=== PATIENT | male | born 1950 | race Caucasian/White ===

== ENCOUNTER 2019-11-27 16:14 | Emergency (ER) | payer MEDICARE, OTHER ==
[2019-11-27] MEDS ORDERED: NS 0.9% 1000 ML** 1,000 ML IV ONE ×2 (16:57→18:14)
[2019-11-27 17:18] LABS: ABS Basophils 0.1 10^3/ul (0-0.2); ABS Eosinophils 0.3 10^3/ul (0-0.6); ABS Lymphocytes 2.9 10^3/ul (1.0-4.8); ABS Monocytes 1.1 10^3/ul (0-0.8); ABS Neutrophils 7.3 10^3/ul (1.5-7.7); Eosinophil % 2.9 %; Hematocrit 48 % (42-52); Hemoglobin 15.7 g/dL (14.0-18.0); Lymphocyte % 24.6 %; Mean Corpuscular HGB Conc 33 g/dL (31-36); Mean Corpuscular Hemoglobin 28 pg (27-31); Mean Corpuscular Volume 84 fL (80-94); Mean Platelet Volume 9.5 fL (7.4-10.4); Nucleated Red Blood Cells % 0.1; Platelet Count 229 10^3/uL (150-450); Red Blood Count 5.69 10^6 /uL (4.18-5.48); Red Cell Distribution Width 15 % (10-15); White Blood Count 11.7 10^3/uL (3.5-10.8)
[2019-11-27] MEDS ORDERED: Ondansetron INJ* 2 MG/ML VIAL IV ONE (17:22)
[2019-11-27] MEDS ORDERED: Morphine 4 MG/ML VIAL (1 ml) 4 MG/ML VIAL IV ONE (17:22)
[2019-11-27] MEDS ORDERED: Tamsulosin CAP* 0.4 MG PO ONE (17:23)
[2019-11-27 17:39] LABS: Albumin 4.4 g/dL (3.2-5.2); BUN/Creatinine Ratio 17.7 (8-20); Calcium 9.7 mg/dL (8.6-10.3); EGFR African American 70.4 (>60); EGFR Non-African American 58.1 (>60); Globulin 4.3 g/dL (2-4); Potassium 3.6 mmol/L (3.5-5.0); Total Protein 8.7 g/dL (6.4-8.9)
--- NOTE | 2019-11-27 17:49 | ED ---
GI/ HPI - HPI Summary HPI Summary: Patient is a 69 y/o M w/ Hx of kidney stones who presents to [facility] with complaints of right flank pain with radiation to right groin area. He states that the pain onset yesterday morning. He reports N/V but denies dysuria, hematuria, fever, CP, and SOB. Patient describes this current presentation as similar to his previous kidney stone episodes. He notes that the last kidney stone he had was in 2011. Patient passed the stone on its own, he notes that he has not required stent placement or lithotripsy for kidney stones. Hx of type two diabetes noted. No past abdominal surgeries noted. Home medications and allergies are reviewed. - History of Current Complaint Chief Complaint: EDFlankPain Time Seen by Provider: 11/27/19 16:54 Stated Complaint: PAIN IN LOWER BACK/VOMITING PER PT Hx Obtained From: Patient Onset/Duration: Started Days Ago, Still Present Timing: Lasting Days Current Severity: Moderate Pain Intensity: 5 Location of Pain: Radiates to: - right groin, Flank - right Pain Radiates to: Inguinal - right groin Associated Signs and Symptoms: Positive: Nausea, Vomiting, Other: - negative - SOB. Negative: Fever, Hematuria, Dysuria, Chest Pain - Allergy/Home Medications Allergies/Adverse Reactions: Allergies Allergy/AdvReac Type Severity Reaction Status Date / Time MS Sulfa Antibiotics Allergy Unknown Unknown Verified 11/27/19 16:21 [Sulfa Antibiotics] Reaction Details PMH/Surg Hx/FS Hx/Imm Hx Endocrine/Hematology History: Reports: Hx Diabetes - Type 2 History: Reports: Hx Kidney Stones - Surgical History Surgery Procedure, Year, and Place: cardiac stent Infectious Disease History: No Infectious Disease History: Denies: Traveled Outside the [place] in Last 30 Days - Family History Known Family History: Negative: Cardiac Disease, Hypertension, Diabetes - Social History Alcohol Use: None Substance Use Type: Reports: None Smoking Status (MU): Former Smoker Type: Cigarettes Have You Smoked in the Last Year: No Review of Systems Negative: Fever Negative: Chest Pain Negative: Shortness Of Breath Positive: Vomiting, Nausea Positive: flank pain - right flank with radiation to right groin . Negative: dysuria, hematuria All Other Systems Reviewed And Are Negative: Yes Physical Exam - Summary Physical Exam Summary: Constitutional: Well-developed, Well-nourished, Alert. (-) Distressed Skin: Warm, Dry HENT: Normocephalic; Atraumatic Eyes: Conjunctiva normal Neck: Musculoskeletal ROM normal neck. (-) JVD, (-) Stridor, (-) Tracheal deviation Cardio: Rhythm regular, rate normal, Heart sounds normal; Intact distal pulses; The pedal pulses are 2+ and symmetric. Radial pulses are 2+ and symmetric. (-) Murmur Pulmonary/Chest wall: Effort normal. (-) Respiratory distress, (-) Wheezes, (-) Rales Abd: Soft, right flank tenderness and mild right-sided abdominal tenderness noted (-) Distension, (-) Guarding, (-) Rebound Musculoskeletal: (-) Edema Lymph: (-) Cervical adenopathy Neuro: Alert, Oriented x3 Psych: Mood and affect Normal Triage Information Reviewed: Yes Vital Signs On Initial Exam: Initial Vitals Temp Pulse Resp BP Pulse Ox 97.8 F 66 18 179/89 97 11/27/19 16:16 11/27/19 16:16 11/27/19 16:16 11/27/19 16:16 11/27/19 16:16 Vital Signs Reviewed: Yes Procedures - Sedation Patient Received Moderate/Deep Sedation with Procedure: No Diagnostics - Vital Signs Vital Signs Temp Pulse Resp BP Pulse Ox 11/27/19 16:16 97.8 F 66 18 179/89 97 - Laboratory Lab Results: Lab Results 11/27/19 11/27/19 Range/Units 17:12 17:12 WBC 11.7 H (3.5-10.8) 10^3/uL RBC 5.69 H (4.18-5.48) 10^6 /uL Hgb 15.7 (14.0-18.0) g/dL Hct 48 (42-52) % MCV 84 (80-94) fL MCH 28 (27-31) pg MCHC 33 (31-36) g/dL RDW 15 (10-15) % Plt Count 229 (150-450) 10^3/uL MPV 9.5 (7.4-10.4) fL Neut % (Auto) 62.2 % Lymph % (Auto) 24.6 % [place] % (Auto) 9.7 % Eos % (Auto) 2.9 % Baso % (Auto) 0.6 % Absolute Neuts (auto) 7.3 (1.5-7.7) 10^3/ul Absolute Lymphs (auto) 2.9 (1.0-4.8) 10^3/ul Absolute Monos (auto) 1.1 H (0-0.8) 10^3/ul Absolute Eos (auto) 0.3 (0-0.6) 10^3/ul Absolute Basos (auto) 0.1 (0-0.2) 10^3/ul Absolute Nucleated RBC 0.0 10^3/ul Nucleated RBC % 0.1 Sodium 137 (135-145) mmol/L Potassium 3.6 (3.5-5.0) mmol/L Chloride 100 L (101-111) mmol/L Carbon Dioxide 26 (22-32) mmol/L Anion Gap 11 (2-11) mmol/L BUN 22 (6-24) mg/dL Creatinine 1.24 H (0.67-1.17) mg/dL Est GFR ( Amer) 70.4 (>60) Est GFR (Non-Af Amer) 58.1 (>60) BUN/Creatinine Ratio 17.7 (8-20) Glucose 207 H (70-100) mg/dL Calcium 9.7 (8.6-10.3) mg/dL Total Bilirubin 1.00 (0.2-1.0) mg/dL AST 79 H (13-39) U/L ALT 68 H (7-52) U/L Alkaline Phosphatase 259 H (34-104) U/L Total Protein 8.7 (6.4-8.9) g/dL Albumin 4.4 (3.2-5.2) g/dL Globulin 4.3 H (2-4) g/dL Albumin/Globulin Ratio 1.0 (1-3) Result Diagrams: 11/27/19 17:12 11/27/19 17:12 Lab Statement: Any lab studies that have been ordered have been reviewed, and results considered in the medical decision making process. - CT CT ABD/PEL CT Interpretation Completed By: Radiologist Summary of CT Findings: IMPRESSION: 1. THERE IS A 7 MM CALCULUS PRESENT IN THE PROXIMAL RIGHT URETER CAUSING MODERATE. HYDRONEPHROSIS. 2. THE LIVER IS HETEROGENEOUS IN DENSITY WITH A MILDLY NODULAR CONTOUR SUGGESTIVE OF. CIRRHOSIS. 3. SMALL BILATERAL INGUINAL HERNIAS CONTAINING FAT. 4. LARGE PROSTATE GLAND. THIS REPORT WAS REVIEWED BY ED PHYSICIAN. GIGU Course/Dx - Course Course Of Treatment: Patient is a 69 y/o M w/ Hx of kidney stones who presents to [facility] with complaints of right flank pain with radiation to right groin area. He states that the pain onset yesterday morning. He reports N/V but denies dysuria, hematuria, fever, CP, and SOB. Patient describes this current presentation as similar to his previous kidney stone episodes. He notes that the last kidney stone he had was in 2011. Patient passed the stone on its own, he notes that he has not required stent placement or lithotripsy for kidney stones. Hx of type two diabetes noted. No past abdominal surgeries noted. Bloodwork was obtained. On physical exam, right flank tenderness and mild right- sided abdominal tenderness noted. Abnormal values include WBC 11.7, RBC 5.69, absolute monos 1.1, chloride 100, creatinine 1.24, glucose 207, AST 79, ALT 68, alk phos 259, globulin 4.3. During ED course, patient received Flomax 0.4 mg PO , fluids, Zofran 4 mg IV, morphine [address] ABD/PEL IMPRESSION: 1. THERE IS A 7 MM CALCULUS PRESENT IN THE PROXIMAL RIGHT URETER CAUSING MODERATE. HYDRONEPHROSIS. 2. THE LIVER IS HETEROGENEOUS IN DENSITY WITH A MILDLY NODULAR CONTOUR SUGGESTIVE OF. CIRRHOSIS. 3. SMALL BILATERAL INGUINAL HERNIAS CONTAINING FAT. 4. LARGE PROSTATE GLAND. UA showed 1+ protein, 3+ blood, 1+ WBC, 3+ RBC. Patient's case was discussed with Dr. Oviedo, Dr. Oviedo agrees that it is reasonable to discharge the patient as he is afebrile without signs of UTI. Patient can follow up in Dr. Oviedo's office on Saturday, . If Sx worsen, patient will need to return to ED for workup. Patient was discharged to home with prescriptions for Zofran, Flomax, and hydrocodone. - Diagnoses Provider Diagnoses: Right ureteral stone, Elevated LFTs - Physician Notifications Discussed Care Of Patient With: Jonathan Oviedo Time Discussed With Above Provider: 18:29 Instructed by Provider To: Other - Patient's case was discussed with Dr. Oviedo, Dr. Oviedo agrees that it is reasonable to discharge the patient as he is afebrile without signs of UTI. Patient can follow up in Dr. Oviedo's office on 11/30/19. If Sx worsen, patient will need to return to ED for workup. Discharge ED - Sign-Out/Discharge Documenting (check all that apply): Patient Departure - discharge - Discharge Plan Condition: Stable Disposition: HOME Patient Education Materials: Ureteral Stones (ED) Referrals: Sallie Wilks MD [Primary Care Provider] - 3 Days Jonathan Oviedo MD [Medical Doctor] - 3 Days Additional Instructions: PLEASE RETURN TO ED FOR ANY NEW OR CONCERNING SYMPTOMS. PLEASE FOLLOW UP WITH YOUR PRIMARY CARE PHYSICIAN AND YOUR UROLOGIST WITHIN THREE DAYS. - Attestation Statements Document Initiated by Scribe: Yes Documenting Scribe: DANA VAZ Provider For Whom Scribe is Documenting (Include Credential): PIA SALAZAR DO Scribe Attestation: DANA Ibarra, scribed for PIA SALAZAR DO on 11/27/19 at 1841.
[2019-11-27 18:26] LABS: Urine Appearance Cloudy; Urine Bilirubin Negative (Negative); Urine Blood 3+ (Negative); Urine Color Amber; Urine Glucose Negative (Negative); Urine Ketones Negative (Negative); Urine Nitrite Negative (Negative); Urine Protein 1+(30 mg/dL) (Negative); Urine Specific Gravity 1.027 (1.010-1.030); Urine Urobilinogen Negative (Negative)
[2019-11-27 18:33] LABS: Urine Bacteria Absent (Absent); Urine Red Blood Cell 3+(>10/hpf) (Absent); Urine White Blood Cell 1+(6-10/hpf) (Absent)
[2019-11-27 19:37] LABS: Activated Partial Thrombo Time 39.1 seconds (26.0-38.0); INR 1.17 (0.82-1.09)
[2019-11-27 19:44] VITALS: BP 124/72
[2019-11-27] MEDS ORDERED: oxyCODONE TAB* 5 MG TAB PO ONE (19:49)
== END 2019-11-27 19:43 | disposition home or self-care (01) ==
LOC: ED 16:14
DX: N21.1 Calculus in urethra (principal); R94.5 Abnormal results of liver function studies; R10.84 Generalized abdominal pain; Z88.2 Allergy status to sulfonamides; Z87.891 Personal history of nicotine dependence; Z87.442 Personal history of urinary calculi; Z79.82 Long term (current) use of aspirin; Z79.899 Other long term (current) drug therapy
CPT/HCPCS: 36415; 74176; 80053; 81003; 81015; 85025; 85610; 85730; 87086; 96361; 96374; 96375; 99283; A9270-GY; J2270; J2405

== ENCOUNTER 2019-12-01 06:04 | Day surgery (SDC) | payer MEDICARE ==
--- NOTE | 2019-11-30 13:15 | HP ---
CC: Dr. Wilks * ADMITTING HISTORY AND PHYSICAL: DATE OF ADMISSION: 12/01/19 ADMITTING DIAGNOSES: 1. Calculus, right ureter. 2. Right hydronephrosis. PLANNED PROCEDURE: Right ureteroscopy, possible laser and stent insertion ( possibly to be followed in the near future by lithotripsy). SURGEON: Dr. Ferrer. HISTORY OF PRESENT ILLNESS: Hector Arambula is a 69-year-old diabetic who has had severe right flank pain, nausea and vomiting for the last 3 to 4 days. He initially presented to the [facility] Emergency Department on 11/27/[address] scan revealed obstructing calculus in the right proximal ureter. He then went to [facility] on 11/29/[address] scan was obtained which showed persistent right hydronephrosis secondary to a 9 to 10 mm calculus in the right ureter. He continues to have fairly severe pain and nausea and is now being brought in for right ureteroscopy, possible laser and stent insertion. Because the calculus is still fairly proximal, I have explained to him that he may require a 2- stage procedure with initial stent insertion to be followed later on possibly by lithotripsy. PAST MEDICAL HISTORY: Significant for: 1. Type 2 diabetes mellitus. 2. History of coronary artery disease and DC in 2002. 3. Hypothyroidism. 4. Kidney stone in 2011. PAST SURGICAL HISTORY: Unremarkable. He did have an angioplasty and stent insertion in 2002. MEDICATIONS ON ADMISSION: 1. Hydromorphone and oxycodone on a p.r.n. basis last few days. 2. Albuterol 2 puffs by inhalation every 4 hours as needed. 3. Aspirin 81 mg a day. 4. Glipizide 10 mg twice a day. 5. Janumet one tablet twice a day. 6. Levothyroxine 112 mcg daily. 7. Metoprolol 50 mg daily. 8. Rosuvastatin 20 mg daily. 9. Tresiba Flex daily. 10. Nitroglycerin, which he has been given, but has never required. ALLERGIES AND INTOLERANCES: SULFA (rash). FAMILY HISTORY: His father and son both have had kidney stones. SOCIAL HISTORY: Smoking history: He is a former smoker, who quit in 2002, with a 30-pack year smoking history prior to that. REVIEW OF SYSTEMS: He is otherwise in excellent health. He denies any chest pain or shortness of breath. PHYSICAL EXAMINATION GENERAL: Reveals a pleasant, middle-aged gentleman. VITAL SIGNS: Blood pressure is 120/80, pulse 86 per minute and regular, temperature 97, oxygen saturation 97% on room air. LUNGS: Clear bilaterally. CARDIOVASCULAR: Regular rate and rhythm. S1, S2. ABDOMEN: Soft with right flank tenderness. IMPRESSION AND PLAN: I reviewed the available imaging and lab studies and had a detailed discussion with Mr. Arambula. Because of the severity of the pain, he would like to proceed with urgent right ureteroscopy, which will be scheduled in the very near future. If his pain worsens, he has been instructed to come back to the emergency department at [facility]. [id number]/CPS #: [id number] MTD[facility]oco
[~2019-12-01 06:04] MED LIST: Buffered Lidocaine 1% SYRIN* 1 ML/SYRINGE INTRADERM ONE; DiMENhydriNATE IV* 50 MG/ML VIAL IV PUSH ONE; Famotidine IV* 10 MG/ML 2 ML (20 mg) IV ONE; Lactated Ringers 1000 ML Bag* 1,000 ML IV SCH; Ondansetron ODT TAB* 4 MG PO ONE
[2019-12-01] MEDS ORDERED: PROCHLORPERAZINE INJ 5 MG/ML 2 ML VIAL IV PRN (06:29)
[2019-12-01] MEDS ORDERED: oxyCODONE TAB* 5 MG TAB PO PRN (06:29)
[2019-12-01] MEDS ORDERED: HYDROmorphone INJ1* 1 MG/ML SYRINGE IV PRN (06:29)
[2019-12-01] MEDS ORDERED: fentaNYL* 50 MCG/ML 2 ML VIAL (100 MCG VIAL) IV PRN (06:29)
[2019-12-01] MEDS ORDERED: Naloxone* 0.4 MG/ML 1 ML VIAL IV PRN (06:29)
[2019-12-01] MEDS ORDERED: Buffered Lidocaine 1% SYRIN* 1 ML/SYRINGE INTRADERM ONE (06:57)
[2019-12-01] MEDS ORDERED: Ondansetron ODT TAB* 4 MG ONE (06:57)
[2019-12-01] MEDS ORDERED: Famotidine IV* 10 MG/ML 2 ML (20 mg) ONE (06:57)
[2019-12-01] MEDS ORDERED: Iohexol 180 (CONTRAST) 10 ML SDV IV ONE (07:08)
[2019-12-01] MEDS ORDERED: Midazolam* 1 MG/ML 5 ML VIAL (5 MG) ONE (07:55)
[2019-12-01] MEDS ORDERED: KETAMINE HCL* 50 MG/ML 10 ML VIAL ONE (07:55)
[2019-12-01] MEDS ORDERED: fentaNYL* 50 MCG/ML 2 ML VIAL (100 MCG VIAL) ONE (07:55)
[2019-12-01] MEDS ORDERED: Propofol* 10 MG/ML 20 ML BTL ONE (07:55)
[2019-12-01] MEDS ORDERED: Lidocaine 2% PF * 5 ML VIAL ONE (07:55)
[2019-12-01] MEDS ORDERED: cefTRIAXone(*) 2 GM ADDV.VIAL IVPB ONE (07:57)
[2019-12-01] MEDS ORDERED: Phenylephrine 40 MCG/ML SYRINGE ONE (08:39)
[2019-12-01] MEDS ORDERED: Tamsulosin CAP* 0.4 MG ONE (09:23)
[2019-12-01] MEDS ORDERED: Gentamicin ADULT (*) 160 MG in NS 0.9% 100 ML* 100 ML IVPB ONE (10:00)
[2019-12-01 10:47] VITALS: BP 129/82
--- NOTE | 2019-12-24 23:56 | OP ---
DATE OF OPERATION: 12/01/19 - [facility] DATE OF : 54 SURGEON: Elijah Ferrer MD ANESTHESIOLOGIST: Dr. Blanco. ANESTHESIA: General. PRE-OP DIAGNOSES: 1. Right hydronephrosis. 2. Calculus, right ureter. POST-OP DIAGNOSES: 1. Right hydronephrosis. 2. Calculus, right ureter. OPERATIVE PROCEDURE: Cystoscopy, right retrograde pyelogram, and right ureteral stent insertion. STENT: 7-Faroese stent, right ureter. OPERATIVE FINDINGS: 1. Prostate enlargement. 2. Right hydronephrosis. SPECIMEN: Urine from right kidney for culture and sensitivity. POSTOPERATIVE CONDITION: Stable. INDICATIONS: Hector Arambula is a 69-year-old diabetic who has been evaluated initially here and subsequently at [facility] for an 8 to 9 mm calculus in the mid right ureter. He is being brought in for right stent insertion, possible ureteroscopy. DESCRIPTION OF PROCEDURE: After induction of general anesthesia, the patient was placed in dorsal lithotomy position. Sequential compression devices were in place and functioning. Initial cystoscopy revealed a normal-appearing urethra and moderately enlarged prostate, especially the median lobe. The bladder was examined and appeared unremarkable. Right retrograde pyelogram revealed right hydronephrosis. The urine draining from the right kidney was somewhat cloudy and was sent for culture and sensitivity. Because of this, I elected not to proceed with ureteroscopy at the present time and a 7-Faroese stent was introduced and positioned under fluoroscopy with good proximal and distal positioning obtained. The patient tolerated the procedure satisfactorily and was transferred back to the recovery area in stable condition. He will be brought back at a later stage for ureteroscopy once a year and culture report of that. [id number]/[facility] #: [id number] [facility]
== END 2019-12-01 11:16 | disposition home or self-care (01) ==
LOC: OR 06:04
PROVIDERS: ATTEND Urology
DX: N13.2 Hydronephrosis with renal and ureteral calculous obstruction (principal); N40.0 Benign prostatic hyperplasia without lower urinary tract symptoms; I25.2 Old myocardial infarction; Z87.891 Personal history of nicotine dependence; E03.9 Hypothyroidism, unspecified; E11.9 Type 2 diabetes mellitus without complications; Z79.84 Long term (current) use of oral hypoglycemic drugs; I25.10 Atherosclerotic heart disease of native coronary artery without angina pectoris; Z95.5 Presence of coronary angioplasty implant and graft; Z87.442 Personal history of urinary calculi
CPT/HCPCS: 74018; 74420; 87086; 93005; A9270-GY; C1876; J0696; J1580; J2250; J2704; J3010

== ENCOUNTER 2019-12-07 05:33 | Day surgery (SDC) | payer MEDICARE ==
--- NOTE | 2019-12-04 17:02 | HP ---
CC: Dr. Wilks UPDATED HISTORY AND PHYSICAL: DATE OF PLANNED ADMISSION AND SURGERY: 12/07/19 HISTORY OF PRESENT ILLNESS: Mr. Arambula is a 69-year-old white male who is admitted with a proximal right ureteral calculus, status post placement of right ureteral stent for cystoscopy, right ureteroscopy, laser lithotripsy and right ureteral stent exchange. Please refer to the detailed history and physical on this patient for his admission on 12/01/19. I am dictating an updated note regarding his course since that admission. Mr. Arambula is a 69-year-old male who presented last week with symptoms of right renal colic and was noted to have an 8 mm calculus in the proximal right ureter. On 12/01/19, the patient was taken to the operating room by Dr. Ferrer and had a cystoscopy and insertion of right ureteral stent. Postoperative KUB did not show the location of the stone. It was suspected that it was in the ureter adjacent to the stent. To confirm the location of the stone prior to endoscopic stone procedure, the patient had a repeat noncontrast CT of the abdomen and pelvis. The study showed the stent to be in good position, there was resolution of the hydronephrosis, no renal calculi, and the calculus was noted adjacent to the stent about 4 or 5 cm distal to the ureteropelvic junction. The patient has been doing well except for the stent discomfort. His urine culture was negative. There have not been any changes in general health, medical condition, or his medications. His vital signs were normal in the office. PLAN: The plan is to proceed with cystoscopy, right ureteroscopy, laser lithotripsy, and right ureteral stent exchange. I discussed the procedure in detail with the patient. Some of the potential complications including infection, ureteral stricture, residual stone fragments were discussed. All his questions were answered. [id number]/[facility] #: [id number] TERRA
[~2019-12-07 05:33] MED LIST changes: -DiMENhydriNATE IV* 50 MG/ML VIAL IV PUSH ONE; -Famotidine IV* 10 MG/ML 2 ML (20 mg) IV ONE; -Lactated Ringers 1000 ML Bag* 1,000 ML IV SCH; -Ondansetron ODT TAB* 4 MG PO ONE
[2019-12-07] MEDS ORDERED: Buffered Lidocaine 1% SYRIN* 1 ML/SYRINGE INTRADERM ONE (05:59)
[2019-12-07] MEDS ORDERED: Metoclopramide IV* 5 MG/ML 2 ML VIAL ONE (05:59)
[2019-12-07] MEDS ORDERED: cefTRIAXone(*) 2 GM ADDV.VIAL IVPB ONE (05:59)
[2019-12-07] MEDS ORDERED: Metoclopramide IV* 5 MG/ML 2 ML VIAL IV SLOW PU ONE (06:00)
[2019-12-07] MEDS ORDERED: Famotidine IV* 10 MG/ML 2 ML (20 mg) ONE (06:00)
[2019-12-07] MEDS ORDERED: Lactated Ringers 1000 ML Bag* 1,000 ML IV SCH (06:00)
[2019-12-07] MEDS ORDERED: Famotidine IV* 10 MG/ML 2 ML (20 mg) IV ONE (06:00)
[2019-12-07 06:53] LABS: Activated Partial Thrombo Time 37.7 seconds (26.0-38.0); INR 1.1 (0.82-1.09)
[2019-12-07] MEDS ORDERED: Midazolam* 1 MG/ML 5 ML VIAL (5 MG) ONE (07:05)
[2019-12-07] MEDS ORDERED: fentaNYL* 50 MCG/ML 2 ML VIAL (100 MCG VIAL) ONE ×2 (07:05→07:49)
[2019-12-07] MEDS ORDERED: Iohexol 180 (CONTRAST) 10 ML SDV IV ONE (07:17)
[2019-12-07] MEDS ORDERED: oxyCODONE/Acetamin 5/325 MG* TAB PO PRN (07:18)
[2019-12-07] MEDS ORDERED: DiMENhydriNATE IV* 50 MG/ML VIAL IV PUSH PRN (07:18)
[2019-12-07] MEDS ORDERED: HYDROcodone/ACETAMIN 5-325 MG* 1 TAB PO PRN (07:18)
[2019-12-07] MEDS ORDERED: fentaNYL* 50 MCG/ML 2 ML VIAL (100 MCG VIAL) IV PRN (07:18)
[2019-12-07] MEDS ORDERED: Naloxone* 0.4 MG/ML 1 ML VIAL IV PRN (07:18)
[2019-12-07] MEDS ORDERED: Lidocaine 2% PF * 5 ML VIAL ONE (07:32)
[2019-12-07] MEDS ORDERED: Propofol* 10 MG/ML 20 ML BTL ONE (07:32)
[2019-12-07] MEDS ORDERED: EPHEDrine (Pressors)* 50 MG/ML VIAL ONE (07:41)
[2019-12-07] MEDS ORDERED: Metoprolol Tartrate IV* 1 MG/ML 5 ML VIAL ONE (07:48)
[2019-12-07] MEDS ORDERED: Phenylephrine 40 MCG/ML SYRINGE ONE (08:01)
[2019-12-07] MEDS ORDERED: Ondansetron INJ* 2 MG/ML VIAL ONE (08:17)
[2019-12-07 11:47] VITALS: BP 157/80
--- NOTE | 2019-12-07 17:36 | OP ---
CC: Dr. Wilks * DATE OF OPERATION: 12/07/19 - [facility] DATE OF : 54 SURGEON: Jonathan Oviedo MD. ANESTHESIOLOGIST: Dr. Yasir Stnaton. ANESTHESIA: General. PRE-OP DIAGNOSES: 1. Proximal right ureteral calculus. 2. Status post placement of right ureteral stent. POST-OP DIAGNOSES: 1. Proximal right ureteral calculus. 2. Status post placement of right ureteral stent. 3. Benign prostatic hyperplasia. OPERATIVE PROCEDURE: 1. Cystoscopy. 2. Right ureteroscopy and laser lithotripsy of proximal right ureteral calculus (8 mm). 3. Right retrograde pyelography and right ureteral stent exchange (7-Zambian). INDICATIONS FOR PROCEDURE: Mr. Arambula is a 69-year-old white male, who presented to the emergency room with symptoms of right renal colic and was noted to have a 7- to 8-mm proximal right ureteral calculus. On 12/01/19, the patient underwent a cystoscopy and insertion of right ureteral stent. KUB following the stent insertion did not show the location of the stone. CT scan showed the calculus in the proximal right ureter about 4 to 5 cm distal to the ureteropelvic junction. Because of that history, the patient admitted for the above procedure. PATHOLOGY AT CYSTOSCOPY: The penile and bulbar urethrae looked normal. The prostatic urethra was large, obstructing, with a large vascular prominent median lobe. The bladder showed moderate diffuse trabeculations. The distal limb of the stent was seen coming from the right orifice. Upon right ureteroscopy, a calculus was noted in the proximal ureter. It was impacted. There was edema and hyperemia of the ureteral mucosa adjacent to the stone. The stone had the gross appearance of calcium oxalate. A retrograde pyelography done at the end of the procedure showed slightly dilated ureter, no extravasation and moderate right hydronephrosis. DESCRIPTION OF PROCEDURE: After successful general anesthesia, the patient was placed in the lithotomy position and was prepped and draped for a cystoscopy. Cystoscopy was performed. The findings in the prostatic urethra were noted. The large median lobe of the prostate made it somewhat difficult to visualize the trigone. The right ureteral stent was then grasped and pulled out to the level of the urethral meatus keeping the proximal end of the stent in the midureter. A flexible-tip guidewire was then introduced through the lumen of the stent and positioned in the area of the renal pelvis, and the stent was removed keeping the guidewire in place. A 6.5 semi-rigid ureteroscope was then introduced inside the bladder under direct vision. A flexible-tip guidewire was then introduced through the port of the ureteroscope and its flexible tip was then introduced inside the right ureteral orifice alongside the guidewire. That allowed the atraumatic introduction of the ureteroscope in the ureter. The ureter was dilated from the presence of the stent. The ureteroscopy was atraumatic. The calculus was identified in the proximal ureter. A size 550 micron laser fiber was then introduced through the other port of the ureteroscope. The stent was then deployed proximal to the stone to avoid its proximal migration. The stone was then fragmented using the laser energy. Care was taken during the lasering not to injure the ureteral wall. The stone was broken into multiple small fragments and they migrated proximally. A few fragments were noted, but they were too small to extract with the basket. The uteroscope was then removed keeping the guidewire in place. The cystoscope was then re-introduced inside the bladder over the guidewire. Open-ended catheter was fed on top of the guidewire and positioned in the distal half of the ureter. Retrograde pyelography was then performed demonstrating the whole ureter including the side of the ureteroscopy. There was no evidence of any extravasation. Moderate hydronephrosis was noted. A size 7-Zambian stent was then placed with the proximal end coiling in the renal pelvis and the distal end coiling inside the bladder. There was good drainage of contrast from the kidney and no extravasation. A 16-Zambian Durham catheter was placed to be removed in the recovery room. The patient tolerated the procedure well and left the operating room in good condition. The plan is to see the patient next week in the office and the stent will be removed. I expect the stone fragments to drop spontaneously. [id number]/CPS #: [id number] [facility]
== END 2019-12-07 12:05 | disposition home or self-care (01) ==
LOC: OR 05:33
PROVIDERS: ATTEND Urology
DX: N20.1 Calculus of ureter (principal); N40.0 Benign prostatic hyperplasia without lower urinary tract symptoms; E11.9 Type 2 diabetes mellitus without complications; Z79.84 Long term (current) use of oral hypoglycemic drugs; I25.10 Atherosclerotic heart disease of native coronary artery without angina pectoris; I25.2 Old myocardial infarction; E03.9 Hypothyroidism, unspecified; Z87.442 Personal history of urinary calculi; Z87.891 Personal history of nicotine dependence
CPT/HCPCS: 36415; 74420; 85610; 85730; C1876; J0696; J2250; J2405; J2704; J2765; J3010; J3490

== ENCOUNTER 2022-03-23 11:00 | Observation (INO) ==
[2022-03-23 12:21] LABS: ABS Basophils 0.1 10^3/ul (0-0.2); ABS Eosinophils 0.2 10^3/ul (0-0.6); ABS Lymphocytes 1.5 10^3/ul (1.0-4.8); ABS Monocytes 1.2 10^3/ul (0-0.8); ABS Neutrophils 5.4 10^3/ul (1.5-7.7); Hematocrit 30 % (42-52); Hemoglobin 9.4 g/dL (14.0-18.0); Lymphocyte % 17.9 %; Mean Corpuscular HGB Conc 31 g/dL (31-36); Mean Corpuscular Hemoglobin 23 pg (27-31); Mean Corpuscular Volume 74 fL (80-94); Mean Platelet Volume 7.9 fL (7.4-10.4); Platelet Count 299 10^3/uL (150-450); Red Blood Count 4.13 10^6 /uL (4.18-5.48); Red Cell Distribution Width 17 % (10-15); White Blood Count 8.2 10^3/uL (3.5-10.8)
[2022-03-23 12:25] LABS: INR 1.29 (0.86-1.15)
[2022-03-23 12:35] LABS: Ammonia 58 mcmol/L (16-53)
[2022-03-23 13:11] LABS: Albumin 3.4 g/dL (3.2-5.2); Calcium 8.9 mg/dL (8.6-10.3); Direct Bilirubin 0.2 mg/dL (0.03-0.18); Globulin 3.5 g/dL (2-4); Indirect Bilirubin 0.7 mg/dL (0.3-1.0); Potassium 3.9 mmol/L (3.5-5.0); Total Bilirubin 0.9 mg/dL (0.2-1.0); Total Protein 6.9 g/dL (6.4-8.9); eGFR CKD-EPI 53.5 (>60)
[2022-03-23 15:49] LABS: Body Fluid WBC 458 /mcL
[2022-03-23 15:53] LABS: Body Fluid Appearance Cloudy; Body Fluid Color Colorless; Body Fluid Mono 56 %; Body Fluid Source Peritonial Fluid; Body Fluid Total Cells Counted 200
[2022-03-23] MEDS ORDERED: Albumin Human 25% 25 GM/100 ML BTL IV ONE (19:48)
[2022-03-23] MEDS ORDERED: Dextrose 50% Syringe 50 ml 25 GM/50 ML SYRINGE IV PUSH PRN (19:52)
[2022-03-23] MEDS ORDERED: Albuterol HFA INHALER 8 gm MDI INH PRN (19:53)
[2022-03-23 20:02] LABS: C Reactive Protein 12.48 mg/L (<8.01)
[2022-03-23 20:49] LABS: HDL Cholesterol 43.5 mg/dL
[2022-03-23 20:55] LABS: BNP 43 pg/mL (<=100)
[2022-03-23] MEDS ORDERED: Iron Sucrose 200 MG in NS 0.9% 100 ml BAG 100 ML IVPB ONE (23:30)
[2022-03-24] MEDS: Enoxaparin 30 MG/0.3 ML SYR SUBCUT SCH ×2 (01:07→20:01)
[2022-03-24 05:34] LABS: ABS Basophils 0.1 10^3/ul (0-0.2); ABS Eosinophils 0.2 10^3/ul (0-0.6); ABS Lymphocytes 1.7 10^3/ul (1.0-4.8); ABS Monocytes 0.8 10^3/ul (0-0.8); ABS Neutrophils 3.4 10^3/ul (1.5-7.7); Eosinophil % 2.5 %; Hematocrit 27 % (42-52); Hemoglobin 8.6 g/dL (14.0-18.0); INR 1.36 (0.86-1.15); Mean Corpuscular HGB Conc 32 g/dL (31-36); Mean Corpuscular Hemoglobin 23 pg (27-31); Mean Corpuscular Volume 73 fL (80-94); Mean Platelet Volume 7.8 fL (7.4-10.4); Nucleated Red Blood Cells % 0.1; Platelet Count 217 10^3/uL (150-450); Red Blood Count 3.77 10^6 /uL (4.18-5.48); Red Cell Distribution Width 17 % (10-15); White Blood Count 6.1 10^3/uL (3.5-10.8)
[2022-03-24 06:14] LABS: Calcium 8.2 mg/dL (8.6-10.3); Potassium 3.2 mmol/L (3.5-5.0); Total Bilirubin 0.9 mg/dL (0.2-1.0); eGFR CKD-EPI 68.9 (>60)
[2022-03-24] MEDS: FLUTICAS/UMECLI/VILANT 100-62.5-25 MDI (NF) INH SCH (07:24)
[2022-03-24] MEDS ORDERED: Potassium Chlor 20 meq TAB.ER PO ONE (07:56)
[2022-03-24] MEDS ORDERED: KCL 20 MEQ/100 ML IVPREMIX 20 MEQ/100 ML BAG IV ONE (08:31)
[2022-03-24 08:38] LABS: Magnesium 1.8 mg/dL (1.9-2.7)
[2022-03-24] MEDS ORDERED: Magnesium Sulfate 2 gm BAG 2 GM/50 ML BAG IVPB ONE (08:50)
[2022-03-24] MEDS ORDERED: INSULIN P SUBCUT SCH (09:00)
[2022-03-24] MEDS ORDERED: [UNRECOGNIZED DRUG - OTHER] SUBCUT SCH (09:00)
[2022-03-24] MEDS ORDERED: INSULIN DEGLUDEC 200 UNIT/ML SUBCUT SCH (09:00)
[2022-03-24] MEDS ORDERED: Gadoxetate (CONTRAST) 181.43 MG/ML 10 ML SDV IV ONE (09:05)
[2022-03-24 10:48] LABS: Corrected Retic Count 1.1 % (0.5-1.5); Hematocrit for Retic CNT 27 % (42-52); Immature Retic Fraction 0.47; RBC Retic Count 3.77 10^6/uL (4.18-5.48)
[2022-03-24] MEDS: Aspirin EC 81 mg TAB.EC (enteric coated) PO SCH (10:48)
[2022-03-24 11:23] LABS: Folate 13.1 ng/mL (5.90-24.80)
[2022-03-24] MEDS ORDERED: Cyanocobalamin INJ 1,000 MCG/ML VIAL 1 ML VIAL IM ONE (12:09)
[2022-03-24 12:17] LABS: Hepatitis B Surface Antigen Nonreactive (Nonreactive)
[2022-03-24 12:22] LABS: Hepatitis B Core IgM Nonreactive (Nonreactive)
[2022-03-24 12:35] LABS: Hepatitis B Surface Ab Not Immune (Immune)
[2022-03-24 13:04] LABS: Glucose, BF 96 mg/dL
[2022-03-24 13:09] LABS: Albumin, BF 0.4 g/dL; Fluid Type, Albumin PERITONEAL FLUID; Lactate Dehydrogenase, BF 65 U/L
[2022-03-24 13:13] LABS: TSH Ultra Thyroid Stim Horm 1.9 mcIU/mL (0.34-5.60)
[2022-03-24 13:25] LABS: Fluid Type, Protein, Total PERITONEAL FLUID; Total Protein, BF 0.9 g/dL
[2022-03-24 14:57] LABS: Hepatitis C Antibody Negative (Negative)
[2022-03-25 06:33] LABS: ABS Basophils 0.1 10^3/ul (0-0.2); ABS Eosinophils 0.2 10^3/ul (0-0.6); ABS Lymphocytes 1.8 10^3/ul (1.0-4.8); ABS Monocytes 0.9 10^3/ul (0-0.8); ABS Neutrophils 4.6 10^3/ul (1.5-7.7); Eosinophil % 2.6 %; Hematocrit 30 % (42-52); Hemoglobin 9.3 g/dL (14.0-18.0); Lymphocyte % 23.4 %; Mean Corpuscular HGB Conc 32 g/dL (31-36); Mean Corpuscular Hemoglobin 23 pg (27-31); Mean Corpuscular Volume 74 fL (80-94); Mean Platelet Volume 7.9 fL (7.4-10.4); Nucleated Red Blood Cells % 0.2; Platelet Count 262 10^3/uL (150-450); Red Blood Count 4.02 10^6 /uL (4.18-5.48); Red Cell Distribution Width 17 % (10-15); White Blood Count 7.5 10^3/uL (3.5-10.8)
[2022-03-25 06:41] LABS: INR 1.29 (0.86-1.15)
[2022-03-25 07:10] LABS: Albumin 3.2 g/dL (3.2-5.2); Calcium 8.4 mg/dL (8.6-10.3); Globulin 3.3 g/dL (2-4); Magnesium 2.1 mg/dL (1.9-2.7); Potassium 3.6 mmol/L (3.5-5.0); Total Bilirubin 0.8 mg/dL (0.2-1.0); Total Protein 6.5 g/dL (6.4-8.9); eGFR CKD-EPI 72.7 (>60)
[2022-03-25] MEDS: FLUTICAS/UMECLI/VILANT 100-62.5-25 MDI (NF) INH SCH (07:47)
[2022-03-25 08:07] VITALS: BP 118/59
[2022-03-25] MEDS: Aspirin EC 81 mg TAB.EC (enteric coated) PO SCH (08:38)
[2022-03-25] MEDS ORDERED: Iron Sucrose 200 MG in NS 0.9% 100 ml BAG 100 ML IVPB SCH (09:00)
== END 2022-03-25 11:38 | disposition home or self-care (01) ==
LOC: EDHOLD 11:00 → ED 11:00 → SUATTDRO 19:26 → MED 23:20
PROVIDERS: ADMIT Internal Medicine; ATTEND Student in an Organized Health Care Education/Training Program

== ENCOUNTER 2024-02-14 19:19 | Observation (INO) ==
[2024-02-14 20:27] LABS: Hematocrit 38.7 % (38-53); Hemoglobin 12.9 g/dL (13.2-16.3); Mean Corpuscular Hemoglobin 29.2 pg (27-33); Mean Corpuscular Hgb Conc 33.4 g/dL (31-36); Mean Corpuscular Volume 87.5 fL (80-97); Mean Platelet Volume 8.1 fL (7.5-11.2); Platelet Count 133 10^3/uL (150-450); Red Blood Count 4.42 10^6/uL (4.06-5.63); Red Cell Distribution Width 16.2 % (12-17); White Blood Count 12.9 10^3/uL (3.6-10.2)
[2024-02-14 20:37] LABS: Activated Partial Thrombo Time 36.8 seconds (26.0-38.0); INR 2.92 (0.83-1.13)
[2024-02-14] MEDS: Lactulose 30 ml UDC PO ONE (20:58)
[2024-02-14] MEDS: Lactated Ringers 1000 ml BAG 1,000 ML IV ONE (20:59)
[2024-02-14 21:06] LABS: ABS Lymphocytes 1.3 10^3/uL (1.0-4.8); ABS Monocytes 1.9 10^3/uL (0.0-1.1); ABS Neutrophils 9.7 10^3/uL (1.5-7.6); ABS Nucleated RBC 0.01 10^3/ul; Eosinophil % 0.2 %; Lymphocyte % 9.7 %
[2024-02-14 21:28] LABS: Urine Appearance Clear; Urine Bilirubin Negative (Negative); Urine Blood Trace (Negative); Urine Color Yellow; Urine Glucose 4+ (>=1000 mg/dL) (Negative); Urine Ketones Negative (Negative); Urine Nitrite Negative (Negative); Urine Protein Negative (Negative); Urine Urobilinogen 1+ (Negative)
[2024-02-14 21:33] LABS: Albumin 2.5 g/dL (3.2-5.2); Albumin/Globulin Ratio 0.7 (1-3); C Reactive Protein 92.46 mg/L (<8.01); Calcium 7.7 mg/dL (8.6-10.3); Creatinine, Serum 1.05 mg/dL (0.67-1.17); Globulin 3.6 g/dL (2-4); Potassium 3.1 mmol/L (3.5-5.0); Total Bilirubin 3.2 mg/dL (0.2-1.0); Total Protein 6.1 g/dL (6.4-8.9); eGFR CKD-EPI 75.9 (>60)
[2024-02-14] MEDS: Potassium Chlor 20 meq TAB.ER PO ONE (22:23)
[2024-02-14] MEDS: Piperacillin/Tazobac 3.375 BAG 3.375 GM/100 ML BAG IV ONE (22:24)
[2024-02-15] MEDS ORDERED: Dextrose 50% Syringe 50 ml 25 GM/50 ML SYRINGE IV PUSH PRN (01:57)
[2024-02-15] MEDS: Insulin GLARGINE 100 un/ml 10 ml VIAL SUBCUT SCH (02:10)
[2024-02-15] MEDS: cefTRIAXone 2 gm/50 mL D5W 2 GM/50 ML BAG IV SCH (02:10)
[2024-02-15 06:54] LABS: Hematocrit 36.6 % (38-53); Hemoglobin 12.2 g/dL (13.2-16.3); Mean Corpuscular Hemoglobin 29.2 pg (27-33); Mean Corpuscular Hgb Conc 33.4 g/dL (31-36); Mean Corpuscular Volume 87.5 fL (80-97); Mean Platelet Volume 8.1 fL (7.5-11.2); Platelet Count 115 10^3/uL (150-450); Red Blood Count 4.18 10^6/uL (4.06-5.63); Red Cell Distribution Width 16.1 % (12-17); White Blood Count 11.2 10^3/uL (3.6-10.2)
[2024-02-15 07:11] LABS: Albumin 2.2 g/dL (3.2-5.2); Albumin/Globulin Ratio 0.6 (1-3); Calcium 7.5 mg/dL (8.6-10.3); Creatinine, Serum 1.04 mg/dL (0.67-1.17); Globulin 3.4 g/dL (2-4); Magnesium 1.9 mg/dL (1.9-2.7); Potassium 3.3 mmol/L (3.5-5.0); Total Protein 5.6 g/dL (6.4-8.9); eGFR CKD-EPI 76.8 (>60)
[2024-02-15 07:15] LABS: ABS Eosinophils 0.1 10^3/uL (0.0-0.5); ABS Lymphocytes 1.2 10^3/uL (1.0-4.8); ABS Monocytes 1.6 10^3/uL (0.0-1.1); ABS Neutrophils 8.2 10^3/uL (1.5-7.6); ABS Nucleated RBC 0.01 10^3/ul; Eosinophil % 0.8 %; Lymphocyte % 10.8 %; Nucleated Red Blood Cells % 0.1 %/100WBC (0.0-0.8)
[2024-02-15] MEDS: Empagliflozin 25 MG TAB PO SCH (09:55)
[2024-02-15] MEDS: CMCS:Epleronone 25 mg TAB (NF) PO SCH (09:55)
[2024-02-15] MEDS: Aspirin EC 81 mg TAB.EC (enteric coated) PO SCH (09:55)
[2024-02-15] MEDS: Lactulose 30 ml UDC PO SCH ×2 (09:55→20:07)
[2024-02-15] MEDS: Polyethylene Glycol 3350 17 GM PACKET PO SCH (20:13)
[2024-02-16] MEDS: Lactulose 30 ml UDC PO SCH (00:19)
[2024-02-16 06:29] LABS: ABS Basophils 0.1 10^3/uL (0.0-0.1); ABS Eosinophils 0.3 10^3/uL (0.0-0.5); ABS Lymphocytes 1.1 10^3/uL (1.0-4.8); ABS Monocytes 1.4 10^3/uL (0.0-1.1); ABS Neutrophils 6.7 10^3/uL (1.5-7.6); ABS Nucleated RBC 0.01 10^3/ul; Hematocrit 37.2 % (38-53); Hemoglobin 12.6 g/dL (13.2-16.3); Lymphocyte % 11.4 %; Mean Corpuscular Hemoglobin 29.5 pg (27-33); Mean Corpuscular Hgb Conc 33.9 g/dL (31-36); Mean Corpuscular Volume 87.1 fL (80-97); Mean Platelet Volume 8.1 fL (7.5-11.2); Nucleated Red Blood Cells % 0.1 %/100WBC (0.0-0.8); Platelet Count 158 10^3/uL (150-450); Red Blood Count 4.27 10^6/uL (4.06-5.63); Red Cell Distribution Width 16.6 % (12-17); White Blood Count 9.6 10^3/uL (3.6-10.2)
[2024-02-16 06:40] LABS: INR 1.89 (0.83-1.13)
[2024-02-16 06:50] LABS: Albumin 2.3 g/dL (3.2-5.2); Albumin/Globulin Ratio 0.7 (1-3); Calcium 7.8 mg/dL (8.6-10.3); Creatinine, Serum 1.02 mg/dL (0.67-1.17); Globulin 3.3 g/dL (2-4); Magnesium 1.8 mg/dL (1.9-2.7); Phosphorus 1.9 mg/dL (2.5-5.0); Potassium 3.4 mmol/L (3.5-5.0); Total Bilirubin 2.9 mg/dL (0.2-1.0); Total Protein 5.6 g/dL (6.4-8.9); eGFR CKD-EPI 78.6 (>60)
[2024-02-16] MEDS: Potassium Chlor 20 meq TAB.ER PO ONE (09:01)
[2024-02-16] MEDS: Potassium Acid Phos 500 mg TAB PO ONE (09:02)
[2024-02-16] MEDS: Magnesium Sulfate 2 gm BAG 2 GM/50 ML BAG IVPB ONE (09:06)
[2024-02-17 04:54] LABS: ABS Basophils 0.1 10^3/uL (0.0-0.1); ABS Eosinophils 0.4 10^3/uL (0.0-0.5); ABS Lymphocytes 1.4 10^3/uL (1.0-4.8); ABS Monocytes 1.2 10^3/uL (0.0-1.1); ABS Neutrophils 5.4 10^3/uL (1.5-7.6); Eosinophil % 5.2 %; Hematocrit 35.5 % (38-53); Hemoglobin 12.1 g/dL (13.2-16.3); Lymphocyte % 16.7 %; Mean Corpuscular Hemoglobin 29.5 pg (27-33); Mean Platelet Volume 7.6 fL (7.5-11.2); Platelet Count 187 10^3/uL (150-450); Red Blood Count 4.08 10^6/uL (4.06-5.63); Red Cell Distribution Width 16.8 % (12-17); White Blood Count 8.6 10^3/uL (3.6-10.2)
[2024-02-17 05:34] LABS: Albumin 2.2 g/dL (3.2-5.2); Albumin/Globulin Ratio 0.6 (1-3); Calcium 7.5 mg/dL (8.6-10.3); Creatinine, Serum 1.01 mg/dL (0.67-1.17); Globulin 3.4 g/dL (2-4); Potassium 3.3 mmol/L (3.5-5.0); Total Bilirubin 2.3 mg/dL (0.2-1.0); Total Protein 5.6 g/dL (6.4-8.9); eGFR CKD-EPI 79.5 (>60)
[2024-02-17] MEDS ORDERED: Potassium Chlor 20 meq TAB.ER PO ONE (08:17)
[2024-02-17] MEDS: Potassium Chlor 20 meq TAB.ER PO ONE (08:49)
[2024-02-17 13:59] VITALS: BP 105/48
== END 2024-02-17 14:00 | disposition short-term general hospital (02) ==
LOC: EDHOLD 19:19 → ED 19:19 → SUATTDRO 02-15 01:52 → MED 02-15 05:19
PROVIDERS: ADMIT Internal Medicine; ATTEND Internal Medicine